=== PATIENT | male | born 1985 | race Two or more races ===

== ENCOUNTER 2017-04-05 13:43 | Outpatient (CLI) | payer OTHER ==
--- NOTE | 2017-04-05 18:21 | Diagnostic Imaging Report ---
Indication: SOB Technique: 2 views of the chest Comparison: none. Findings: Lungs and pleural spaces are clear. Heart size is normal. Bones are unremarkable.. Impression: No acute process
== END 2017-04-05 15:43 | disposition home or self-care (01) ==
LOC: RAD 13:43
DX: R05 Cough (principal); R06.02 Shortness of breath
CPT/HCPCS: 71020